=== PATIENT | male | born 1955 | race African-American/Black ===

== ENCOUNTER 2016-09-27 04:03 | Emergency (ER) | payer OTHER ==
[~2016-09-27] VITALS: Ht 180.3 cm; Wt 91.0 kg
[2016-09-27 04:45] VITALS: BP 138/85
[2016-09-27] MEDS ORDERED: IBUPROFEN 600MG TABLET PO ONE (04:45)
== END 2016-09-27 05:18 | disposition home or self-care (01) ==
LOC: ER 04:04
DX: S80.01XA Contusion of right knee, initial encounter (principal); I10 Essential (primary) hypertension; F17.200 Nicotine dependence, unspecified, uncomplicated; W17.89XA Other fall from one level to another, initial encounter; Y93.89 Activity, other specified; Y92.89 Other specified places as the place of occurrence of the external cause; Y99.8 Other external cause status
CPT/HCPCS: 99283

== ENCOUNTER 2017-07-08 19:20 | Emergency (ER) | payer MEDICAID, OTHER | END 2017-07-08 21:00 | disposition left against medical advice (07) | LOC: ER 20:42 | DX: J02.9 Acute pharyngitis, unspecified (principal); Z53.21 Procedure and treatment not carried out due to patient leaving prior to being seen by health care provider ==

== ENCOUNTER 2018-01-18 11:58 | Emergency (ER) | payer MEDICAID, OTHER ==
[~2018-01-18] VITALS: Ht 180.3 cm; Wt 89.0 kg
[2018-01-18 12:42] VITALS: BP 148/85
== END 2018-01-18 18:20 | disposition left against medical advice (07) ==
LOC: ER 13:22
DX: R51 Headache (principal); R11.0 Nausea; Z53.21 Procedure and treatment not carried out due to patient leaving prior to being seen by health care provider